=== PATIENT | female | born 1955 ===

== ENCOUNTER → 2016-08-04 | Outpatient (CLI) | payer BC ==
--- NOTE | 2016-08-04 16:03 | HKNOTE ---
DATE OF SERVICE: 08/04/2016 INTERVAL HISTORY: The patient presents today for a followup evaluation on her left knee. We last saw her approximately 1 year ago where she had a Monovisc injection with good symptomatic relief. She continues to have pain predominantly along the anterior knee. She does complain of pain with skiing as well as ambulating up and down the stairs. She denies any adverse events from her previous injection. She denies any fevers or chills. She is here today for a repeat Monovisc injection to the left knee. PHYSICAL EXAMINATION: On exam today, she is alert and oriented x4 and in no acute distress. Knee range of motion is 0-125 degrees. She does have 3+ patellofemoral crepitus. She has tenderness along the medial and lateral patellar facet. Varus and valgus forces are stable. Compartments are otherwise soft. She is neurovascularly intact distally. IMAGING: X-rays of the left knee were obtained today and reviewed by me. They reveal moderate to advanced degenerative changes, prominent the patellofemoral compartment. There is joint space narrowing and osteophyte formation as well as lateral tilting of the patella. The medial and lateral compartments of the knee are generally well maintained. ASSESSMENT: Left knee osteoarthritis, predominantly the patellofemoral compartment. PLAN: The patient underwent a Monovisc injection to her left knee today successfully. She was encouraged to take [id number] anti-inflammatories and apply ice to the area. She should also modify her activities for today. If she has any adverse events she will call the office. Otherwise, we will see her back on an as needed basis. PROCEDURE NOTE: The procedure was fully explained to the patient and informed consent was obtained prior to the start of the procedure. The area was prepped and draped in sterile fashion using Betadine. Ethyl chloride was used to anesthetize the superolateral aspect of the left knee and 4 mL of Monovisc injection was injected in the suprapatellar pouch successfully. A sterile bandage was then applied. All questions and concerns were addressed at the time of the procedure. Dictated By: DEB WISDOM/JASBIR Conf#: [id number] DID#: [id number] GERTRUDE
--- NOTE | 2016-08-05 10:37 | RADRPT ---
PROCEDURE: XR left knee. CLINICAL INDICATION: Knee pain TECHNIQUE: AP weightbearing, PA weightbearing, lateral weightbearing and sunrise views are availab le for review. COMPARISON: 09/15/2015 FINDINGS: There is moderate osteoarthrosis involving the medial tibial femoral compartment, lateral tibial fem oral compartment and patellofemoral compartment. This is associated with joint space narrowing, subc hondral sclerosis and osteophytosis. There is otherwise normal mineralization, architecture and alignment. No fractures are identified. No osseous lesions are identified. The soft tissues are unremarkable. IMPRESSION: Moderate osteoarthrosis involving the medial tibial femoral compartment, lateral tibial femoral comp artment and patellofemoral compartment. Unchanged from the previous examination RPTAT: [facility] .Salvatore Laboy MD, Date Time Electronically viewed and signed by .Salvatore Laboy MD, on 08/05/2016 10:37 .B/
== END | disposition home or self-care (01) ==
LOC: HKI 07-28 11:00
PROVIDERS: ATTEND Orthopaedic Surgery
DX: M25.562 Pain in left knee (principal); M17.12 Unilateral primary osteoarthritis, left knee
CPT/HCPCS: 20610; 73564; J7327